=== PATIENT | female | born 1985 | race Two or more races ===

== ENCOUNTER 2023-07-16 01:06 | Emergency (ER) | payer BC ==
[~2023-07-16] VITALS: Ht 167.6 cm; Wt 66.7 kg
[2023-07-16] MEDS ORDERED: ONDANSETRON HCL/PF 4 MG/2 ML VIAL ONE ×2 (01:25→02:16)
[2023-07-16] MEDS ORDERED: ONDANSETRON HCL/PF 4 MG/2 ML VIAL IVP ONE (01:30)
[2023-07-16] MEDS ORDERED: IV NS 0.9% 1,000 ML BAG IV ONE (01:30)
[2023-07-16 02:10] LABS: BASOPHILS # (AUTO) 0.1 K/uL (0.0-0.2); BASOPHILS % (AUTO) 0.9 % (0.0-2.0); EOSINOPHILS % (AUTO) 0.6 % (0.0-6.0); HEMATOCRIT 37 % (33-45); LYMPHOCYTES # (AUTO) 1.9 K/uL (0.8-4.8); LYMPHOCYTES % (AUTO) 31.3 % (20.0-44.0); MEAN CORPUSCULAR HEMOGLOBIN 29 PG (26.0-33.0); MEAN CORPUSCULAR HGB CONC 33 g/dl (31.0-36.0); MEAN CORPUSCULAR VOLUME 89 fL (82-100); MONOCYTES # (AUTO) 0.3 K/uL (0.1-1.30); MONOCYTES % (AUTO) 4.7 % (2.0-12.0); NEUTROPHILS # (AUTO) 3.8 K/uL (1.8-8.9); NEUTROPHILS % (AUTO) 62.5 % (43.0-81.0); PLATELET COUNT (AUTO) 192 K/uL (150-450); RED BLOOD CELL COUNT(AUTO) 4.11 MIL/uL (4.0-5.2); RED CELL DISTRIBUTION WIDTH 13.9 % (11.5-15.0); WHITE BLOOD COUNT (AUTO) 6.1 K/uL (4.3-11.0)
[2023-07-16 02:18] LABS: CALCIUM, SERUM 7.5 mg/dL (8.5-10.1); CREATININE 0.5 mg/dL (0.6-1.3)
[2023-07-16 02:23] LABS: POTASSIUM 2.6 mmol/L (3.5-5.1)
[2023-07-16 02:24] LABS: ALBUMIN 3.4 g/dL (3.4-5.0); BILIRUBIN,DIRECT 0.1 mg/dL (0.0-0.2); BILIRUBIN,TOTAL 0.1 mg/dL (0.2-1.0); TOTAL PROTEIN, SERUM 6.5 g/dL (6.4-8.2)
[2023-07-16] MEDS ORDERED: ONDANSETRON HCL/PF 4 MG/2 ML VIAL IV ONE (02:30)
[2023-07-16] MEDS ORDERED: POTASSIUM CHLORIDE 20 MEQ TAB.PRT.SR PO ONE ×2 (02:30→02:52)
[2023-07-16] MEDS ORDERED: POTASSIUM CL. PREMIX PERIPHER. 50 ML IV SCH (02:30)
[2023-07-16] MEDS ORDERED: IV NS 0.9% 500 ML BAG IV ONE (02:30)
[2023-07-16] MEDS ORDERED: POTASSIUM CL. PREMIX PERIPHER. 50 ML ONE (02:52)
[2023-07-16 05:34] LABS: MAGNESIUM 1.9 mg/dL (1.8-2.4)
[2023-07-16 07:54] VITALS: BP 110/62; TEMP 98; O2SAT 96
== END 2023-07-16 08:00 | disposition home or self-care (01) ==
LOC: ER 01:14
DX: F10.129 Alcohol abuse with intoxication, unspecified (principal); R51.9 Headache, unspecified; F17.200 Nicotine dependence, unspecified, uncomplicated; Z88.0 Allergy status to penicillin; Y90.7 Blood alcohol level of 200-239 mg/100 ml
CPT/HCPCS: 99285; 96365; 96361; 96375; 71045; 96376; 70450; 85025; 80048; 83690; 80076; 83735; 36415; 82962; 84702; 80320; J2405 ×2; J7040; J3480; A4223; G0480